=== PATIENT | male | born 1990 | race Caucasian/White ===

== ENCOUNTER 2016-06-20 07:31 | Emergency (ER) | payer SELFPAY ==
[2016-06-20 07:36] VITALS: TEMP 97.5; O2SAT 97
[2016-06-20] MEDS ORDERED: KETOROLAC 30 MG/1 ML SDV IVP ONE (08:43)
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
[2016-06-20 10:03] VITALS: BP 130/93; PULSE 85; RESP 16
== END 2016-06-20 10:30 | disposition home or self-care (01) ==
DX: S39.012A Strain of muscle, fascia and tendon of lower back, initial encounter (principal); S20.212A Contusion of left front wall of thorax, initial encounter; F17.200 Nicotine dependence, unspecified, uncomplicated; V18.0XXA Pedal cycle driver injured in noncollision transport accident in nontraffic accident, initial encounter; Y99.8 Other external cause status; Y93.89 Activity, other specified
CPT/HCPCS: 96374; J1885